=== PATIENT | male | born 1970 | race African-American/Black ===

== ENCOUNTER 2018-10-01 15:01 | Emergency (ER) | payer SELFPAY ==
[~2018-10-01] VITALS: Ht 185.4 cm; Wt 97.5 kg
[2018-10-01] MEDS ORDERED: ASPIRIN 325 MG TABLET PO ONE (15:15)
--- NOTE | 2018-10-01 15:23 | PHYS DOC ---
Adult General Chief Complaint Chief Complaint: CHEST PAIN HPI HPI Patient is a 48 year old male who presents with Maira Jacob when he began having right-sided chest pain and dizziness that lasted less than a minute. Patient states it again happened soon after and again lasted about 30 seconds this time. Patient denies nausea, vomiting, diaphoresis, shortness of air. Patient states he took an 81 mg aspirin. Patient has no pain or symptoms at this time. She takes no medications daily and does have a history of goiter. Review of Systems Review of Systems Constitutional: Denies fever or chills [] Eyes: Denies change in visual acuity, redness, or eye pain [] HENT: Denies nasal congestion or sore throat [] Respiratory: Denies cough or shortness of breath [] Cardiovascular: Right-sided chest pain GI: Denies abdominal pain, nausea, vomiting, bloody stools or diarrhea [] : Denies dysuria or hematuria [] Musculoskeletal: Denies back pain or joint pain [] Integument: Denies rash or skin lesions [] Neurologic: Dizziness. Denies headache, focal weakness or sensory changes [] Endocrine: Denies polyuria or polydipsia [] All other systems were reviewed and found to be within normal limits, except as documented in this note. Current Medications Current Medications Current Medications Medications (Trade) Dose Ordered Sig/[facility] Start Time Stop Time Status Last Admin Dose Admin Aspirin (Alessia Aspirin) 325 mg 1X ONCE 10/01/18 15:15 10/01/18 15:19 DC 10/01/18 15:29 325 MG Allergies Allergies Allergies Coded Allergies Type Severity Reaction Last Updated Verified No Known Drug Allergies 10/01/18 No Physical Exam Physical Exam Constitutional: Well developed, well nourished, no acute distress, non-toxic appearance. [] HENT: Normocephalic, atraumatic, bilateral external ears normal, oropharynx moist, no oral exudates, nose normal. [] Eyes: PERRLA, EOMI, conjunctiva normal, no discharge. [] Neck: Baseball size goiter. Normal range of motion, no tenderness, supple, no stridor. [] Cardiovascular:Heart rate regular rhythm, no murmur [] Lungs & Thorax: Bilateral breath sounds clear to auscultation [] Abdomen: Bowel sounds normal, soft, no tenderness, no masses, no pulsatile masses. [] Skin: Warm, dry, no erythema, no rash. [] Back: No tenderness, no CVA tenderness. [] Extremities: No tenderness, no cyanosis, no clubbing, ROM intact, no edema. [] Neurologic: Alert and oriented X 3, normal motor function, normal sensory function, no focal deficits noted. [] Psychologic: Affect normal, judgement normal, mood normal. [] Current Patient Data Vital Signs Vital Signs Date Time Temp Pulse Resp B/P (MAP) Pulse Ox O2 Delivery O2 Flow Rate FiO2 10/01/18 15:11 97.9 98 18 166/105 (125) 97 Room Air 97.9 Lab Values Laboratory Tests Test 10/01/18 15:30 10/01/18 15:40 White Blood Count 5.2 x10^3/uL (4.0-11.0) Red Blood Count 4.62 x10^6/uL (4.30-5.70) Hemoglobin 14.5 g/dL (13.0-17.5) Hematocrit 42.5 % (39.0-53.0) Mean Corpuscular Volume 92 fL (79-100) Mean Corpuscular Hemoglobin 31 pg (25-35) Mean Corpuscular Hemoglobin Concent 34 g/dL (31-37) Red Cell Distribution Width 13.4 % (11.5-14.5) Platelet Count 220 x10^3/uL (140-400) Neutrophils (%) (Auto) 58 % (31-73) Lymphocytes (%) (Auto) 30 % (24-48) Monocytes (%) (Auto) 10 % (0-9) H Eosinophils (%) (Auto) 2 % (0-3) Basophils (%) (Auto) 1 % (0-3) Neutrophils # (Auto) 3.1 x10^3uL (1.8-7.7) Lymphocytes # (Auto) 1.5 x10^3/uL (1.0-4.8) Monocytes # (Auto) 0.5 x10^3/uL (0.0-1.1) Eosinophils # (Auto) 0.1 x10^3/uL (0.0-0.7) Basophils # (Auto) 0.0 x10^3/uL (0.0-0.2) Prothrombin Time 13.0 SEC (11.7-14.0) Prothrombin Time INR 1.0 (0.8-1.1) Sodium Level 138 mmol/L (136-145) Potassium Level 4.1 mmol/L (3.5-5.1) Chloride Level 102 mmol/L (98-107) Carbon Dioxide Level 29 mmol/L (21-32) Anion Gap 7 (6-14) Blood Urea Nitrogen 13 mg/dL (8-26) Creatinine 1.1 mg/dL (0.7-1.3) Estimated GFR (Cockcroft-Gault) 70.9 BUN/Creatinine Ratio 12 (6-20) Glucose Level 90 mg/dL (70-99) Calcium Level 10.1 mg/dL (8.5-10.1) Total Bilirubin 0.5 mg/dL (0.2-1.0) Aspartate Amino Transferase (AST) 18 U/L (15-37) Alanine Aminotransferase (ALT) 24 U/L (16-63) Alkaline Phosphatase 54 U/L (46-116) Troponin I Quantitative < 0.017 ng/mL (0.000-0.055) Total Protein 8.2 g/dL (6.4-8.2) Albumin 4.1 g/dL (3.4-5.0) Albumin/Globulin Ratio 1.0 (1.0-1.7) Urine Opiates Screen Neg (NEG) Urine Methadone Screen Neg (NEG) Urine Barbiturates Neg (NEG) Urine Phencyclidine Screen Neg (NEG) Urine Amphetamine/Methamphetamine Neg (NEG) Urine Benzodiazepines Screen Neg (NEG) Urine Cocaine Screen Neg (NEG) Urine Cannabinoids Screen Neg (NEG) Urine Ethyl Alcohol Neg (NEG) Laboratory Tests 10/01/18 15:30 Laboratory Tests 10/01/18 15:30 EKG EKG Sinus Rhythm and no STEMI[] Interpretation Time: [address] West Radiology/Procedures Radiology/Procedures [] Impressions: [facility] [address] [place] [address] IMAGING REPORT Signed PATIENT: TIFFANIE GRANT ACCOUNT: [id number] : 1970 LOCATION: ER AGE: 48 SEX: M EXAM STATUS: PRE ER ORD. PHYSICIAN: TIMOTHY LE APRN REASON: chest pain PROCEDURE: CHEST PA & LATERAL Exam performed: 2 views of the chest. Indication: Chest pain Date of Service: 10/01/2018 3:13 PM . Comparison : None available Findings: PA and lateral radiographs of the chest reveal a normal cardiomediastinal contour. The lung apices are not well evaluated due to overlying chin, the remainder lungs are clear. No pleural fluid is seen. The visualized osseous structures are unremarkable. Impression: No acute cardiopulmonary process seen. Electronically signed by: Glory Estevez MD (10/01/2018 3:43 PM) [facility] DICTATED and SIGNED BY: GLORY ESTEVEZ MD DATE: 10/01/18 1543 Course & Med Decision Making Course & Med Decision Making Patient is a 48 year old male who presents with Maira Jacob when he began having right-sided chest pain and dizziness that lasted less than a minute. Patient states it again happened soon after and again lasted about 30 seconds this time. Patient denies nausea, vomiting, diaphoresis, shortness of air. Patient states he took an 81 mg aspirin. Patient has no pain or symptoms at this time. Patient takes no medications daily and does have a history of goiter. Patient has a large baseball size goiter of which he states is shrinking. Patient states he currently has no medical doctor. Patient has a 92 heart rate, 99% on room air, 166/105, 19 respirations, 98.9. Alert and oriented. Skin pink warm and dry. PERRLA. Lungs are clear to station all lobes. Chest pain is not reproducible with palpation. Patient denies any pain at this time. No extremity swelling. Patient denies headache or dizziness or weaknesses or numbness or tingling at this time. Ambulatory with a steady gait. Speaks in full clear sentences. Blood work unremarkable. Troponin negative. Chest x-ray shows no acute findings. Heart score is 1. Patient continues to be symptoms free through whole ED visit. Patient is sent home to follow up with primary care provider in the next 48 hours. Dragon Disclaimer Dragon Disclaimer This electronic medical record was generated, in whole or in part, using a voice recognition dictation system. The HEART Score for CP Pts HEART Score for Chest Pain: HEART Score for Chest Pain Response (Comments) Value History Slighlty/Non-Suspicious 0 ECG Normal 0 Age >45 - < 65 1 Risk Factors No Risk Factors 0 Troponin < Normal Limit 0 Total 1 Risk Factors: Risk Factors: DM, Current or recent (<one month) smoker, HTN, HLP, family history of CAD, obesity. Risk Scores: Score 0 - 3: 2.5% MACE over next 6 weeks - Discharge Home Score 4 - 6: 20.3% MACE over next 6 weeks - Admit for Clinical Observation Score 7 - 10: 72.7% MACE over next 6 weeks - Early Invasive Strategies Departure Departure Impression: Primary Impression: Chest pain Disposition: 01 HOME, SELF-CARE Condition: STABLE Patient Instructions: Chest Pain (Nonspecific) Additional Instructions: Return to the ED if he began having worsening chest pain and symptoms. Follow up with a primary care doctor this week. Problem Qualifiers Primary Impression: Chest pain Chest pain type: unspecified Qualified Codes: R07.9 - Chest pain, unspecified TIMOTHY LE APRN Oct 01, 2018 15:23
[2018-10-01 15:43] LABS: HEMATOCRIT 42.5 % (39.0-53.0); HEMOGLOBIN 14.5 g/dL (13.0-17.5); MEAN CORPUSCULAR HEMOGLOBIN 31 pg (25-35); MEAN CORPUSCULAR HGB CONC 34 g/dL (31-37); MEAN CORPUSCULAR VOLUME 92 fL (79-100); PLATELET COUNT 220 x10^3/uL (140-400); RED BLOOD COUNT 4.62 x10^6/uL (4.30-5.70); RED CELL DISTRIBUTION WIDTH 13.4 % (11.5-14.5); WHITE BLOOD COUNT 5.2 x10^3/uL (4.0-11.0)
[2018-10-01 15:44] LABS: BASO % 1 % (0-3); EOS # 0.1 x10^3/uL (0.0-0.7); EOS % 2 % (0-3); LYMPH # 1.5 x10^3/uL (1.0-4.8); LYMPH % 30 % (24-48); MONO # 0.5 x10^3/uL (0.0-1.1); MONO % 10 % (0-9); NEUT # 3.1 x10^3uL (1.8-7.7); NEUT % 58 % (31-73)
--- NOTE | 2018-10-01 15:45 | RAD ---
Exam performed: 2 views of the chest. Indication: Chest pain Date of Service: 10/01/2018 3:13 PM . Comparison : None available Findings: PA and lateral radiographs of the chest reveal a normal cardiomediastinal contour. The lung apices are not well evaluated due to overlying chin, the remainder lungs are clear. No pleural fluid is seen. The visualized osseous structures are unremarkable. Impression: No acute cardiopulmonary process seen. Electronically signed by: Glory Estevez MD (10/01/2018 3:43 PM) [facility]
--- NOTE | 2018-10-01 15:51 | EKG ---
[facility] [address] [place] [address] Test Date: 2018-10-01 Test Time: 15:08:30 Pat Name: TIFFANIE GRANT Department: Room: Gender: Aircraft Systems Repairer: : 1970 Requested By: TIMOTHY LE Order Number: [id number] Reading MD: Measurements Intervals Raymond Rate: 78 P: 26 MI: 176 QRS: 3 QRSD: 98 T: 23 QT: 358 QTc: 411 Interpretive Statements SINUS RHYTHM NORMAL ECG RI6.01 Unconfirmed report No previous ECG available for comparison
[2018-10-01 15:56] LABS: BARBITURATES NEG (NEG); BENZODIAZEPINES NEG (NEG); CANNABINOIDS NEG (NEG); COCAINE NEG (NEG); METHADONE NEG (NEG); OPIATES NEG (NEG); PHENCYCLIDINE NEG (NEG)
[2018-10-01 15:57] LABS: AMPHETAMINE/METHAMPHETAMINE NEG (NEG)
[2018-10-01 15:59] LABS: CALCIUM 10.1 mg/dL (8.5-10.1); CREATININE 1.1 mg/dL (0.7-1.3); GFR 70.9; POTASSIUM 4.1 mmol/L (3.5-5.1)
[2018-10-01 16:00] VITALS: BP 165/97
[2018-10-01 16:05] LABS: ALBUMIN 4.1 g/dL (3.4-5.0); TOTAL BILIRUBIN 0.5 mg/dL (0.2-1.0); TOTAL PROTEIN 8.2 g/dL (6.4-8.2)
== END 2018-10-01 16:32 | disposition home or self-care (01) ==
LOC: ER 15:01
DX: R07.89 Other chest pain (principal); R42 Dizziness and giddiness; E04.9 Nontoxic goiter, unspecified
CPT/HCPCS: 36415; 71046; 80053; 80307; 84484; 85025; 85610; 93005; 99285-25

== ENCOUNTER 2019-08-02 20:03 | Emergency (ER) | payer OTHER ==
[~2019-08-02] VITALS: Ht 182.9 cm; Wt 99.1 kg
[2019-08-02] MEDS ORDERED: CLON0.1T PO (21:00)
[2019-08-02] MEDS ORDERED: AMOXICILLIN/K CLAV 875/125MG TABLET. PO ONE (21:00)
[2019-08-02] MEDS ORDERED: AMOX1TAB61 PO (21:00)
[2019-08-02] MEDS ORDERED: ACET-704 PO (21:00)
[2019-08-02] MEDS ORDERED: CHLO15MO2 PO (21:00)
[2019-08-02] MEDS ORDERED: DEXAMETHASONE 4 MG TABLET PO ONE (21:00)
[2019-08-02] MEDS ORDERED: ACETAMINOPHEN/CODEINE 300/30MG TABLET. PO ONE (21:00)
--- NOTE | 2019-08-02 21:02 | PHYS DOC ---
Past Medical History Past Medical History: Other Additional Past Medical Histor: GOITER Past Surgical History: No Surgical History Smoking Status: Never Smoker Alcohol Use: None Drug Use: None General Adult EDM: Chief Complaint: HYPERTENSION HPI: HPI: 49-year-old male presents with report of right maxillary molar dental pain and swelling 3 days. Reports some radiation up to his right ear. Denies fever or chills. Denies trauma. Patient does report known poor dentition. Reports has not yet been able to follow up with a dentist. Patient was found to have elevated blood pressure upon triage. Patient denies history of high blood pressure. Reports he is not surprised his blood pressure was elevated due to his discomfort. Denies headache, chest pain, or shortness of air. Review of Systems: Review of Systems: Constitutional: Denies fever or chills Eyes: Denies redness or eye pain HENT: Denies nasal congestion or sore throat; reports right maxillary toothache, gum swelling, and right ear pain Respiratory: Denies cough or shortness of breath Cardiovascular: Denies chest pain or palpitations GI: Denies abdominal pain, nausea, or vomiting Integument: Denies rash or skin lesions Neurologic: Denies headache, focal weakness or sensory changes Complete systems were reviewed and found to be within normal limits, except as documented in this note. Allergies: Allergies: Allergies Coded Allergies Type Severity Reaction Last Updated Verified No Known Drug Allergies 10/01/18 No Physical Exam: PE: Constitutional: Well developed, well nourished, no acute distress, non-toxic appearance HENT: Normocephalic, atraumatic, oropharynx moist, or dentition throughout with prior dental extractions, right first maxillary molar with large dental carry, gingivitis appreciated, no fluctuant mass consistent for drainable abscess Eyes: Conjunctiva normal, no discharge Neck: Normal range of motion, no tenderness, large anterior goiter (chronic) Cardiovascular: Heart rate normal, regular rhythm Lungs & Thorax: Bilateral breath sounds clear to auscultation, no wheezing Skin: Warm, dry, no erythema, no rash Extremities: No tenderness, ROM intact, no edema Neurologic: Alert and oriented X 3, no focal deficits noted Psychologic: Affect normal, judgment normal Current Patient Data: Vital Signs: Vital Signs Date Time Temp Pulse Resp B/P (MAP) Pulse Ox O2 Delivery O2 Flow Rate FiO2 08/02/19 20:12 98.2 88 20 188/113 (138) 98 Room Air 98.2 EKG: EKG: [] Radiology/Procedures: Radiology/Procedures: [] Course & Med Decision Making: Course & Med Decision Making Patient presents with right maxillary molar pain with known poor dentition. Large dental carry, gingivitis, and tenderness noted. No drainable abscess appreciated. Patient was found to have significantly elevated blood pressure. Denies any headache or chest pain. Pain addressed. Empiric antibiotic initiated. Blood pressure did improve. Patient advised would need to follow closely with PCP for further evaluation of his lip pressure. A rescue clonidine prescription was provided with instructions to take only if blood pressure is significantly elevated. Patient stable for discharge with outpatient follow-up with PCP/dentist. Discussed findings and plan with patient, who acknowledges understanding and agreement. Maranda Disclaimer: Maranda Disclaimer: This electronic medical record was generated, in whole or in part, using a voice recognition dictation system. Departure Departure Impression: Primary Impression: Dentalgia Additional Impressions: Dental caries Gingivitis Hypertension Qualified Codes: I10 - Essential (primary) hypertension Disposition: HOME, SELF-CARE Condition: STABLE Referrals: NO PCP (PCP) Patient Instructions: Dental Caries, Gingivitis, [id number], Hypertension, [id number], Toothache-Brief Additional Instructions: The medication you have been prescribed will help with infection but will not cure the problem. Please follow closely with a dentist. You also need to follow with a family physician regarding rechecking your blood pressure. You may need to be on blood pressure medication. The medication you have been given is only a temporary fix. Scripts Clonidine Hcl (CLONIDINE HCL) 0.1 Mg Tablet 0.1 MG PO BID PRN for ELEVATED BP, SEE COMMENTS, #14 TAB Take for systolic blood pressure (upper number) greater than 185 and/or diastolic blood pressure (lower number) greater than 105. Prov: JANNET WHEATLEY DO 08/02/19 Chlorhexidine Gluconate (PERIDEX) 15 Ml Mouthwash 15 ML PO BID, #500 ML 0 Refills Swish and spit twice daily after brushing teeth Prov: JANNET WHEATLEY DO 08/02/19 Acetaminophen With Codeine (TYLENOL WITH CODEINE #3 TABLET) 1 Each Tablet 1 TAB PO PRN Q6HRS PRN for pain MDD 4 Tablet(s), #10 TAB 0 Refills Prov: JANNET WHEATLEY DO 08/02/19 Amoxicillin/Potassium Clav (AUGMENTIN 875-125 TABLET) 1 Each Tablet 1 TAB PO BID, #14 TAB Prov: JANNET WHEATLEY DO 08/02/19 JANNET WHEATLEY DO August 02, 2019 21:02
[2019-08-02 21:14] VITALS: BP 168/97
== END 2019-08-02 21:18 | disposition home or self-care (01) ==
LOC: ER 20:03
DX: K02.9 Dental caries, unspecified (principal); K05.10 Chronic gingivitis, plaque induced; K08.89 Other specified disorders of teeth and supporting structures; I10 Essential (primary) hypertension
CPT/HCPCS: 99284; J8540

== ENCOUNTER 2020-04-07 15:52 | Emergency (ER) | payer OTHER ==
[~2020-04-07] VITALS: Ht 182.9 cm; Wt 92.7 kg
[~2020-04-07 15:52] MED LIST: ACET-704 PO; AMOX1TAB61 PO; CHLO15MO2 PO; CLON0.1T PO
[2020-04-07 16:20] VITALS: BP 138/88
--- NOTE | 2020-04-07 16:49 | PHYS DOC ---
Past Medical History Past Medical History: Hypertension, Other Additional Past Medical Histor: GOITER Past Surgical History: Appendectomy Smoking Status: Never Smoker Alcohol Use: None Drug Use: None General Adult EDM: Chief Complaint: HYPERTENSION HPI: HPI: 49-year-old male presenting the emergency department with elevated blood pressure readings at home. He has felt generally fatigued. He had an appendectomy about a week ago. He denies chest pain or shortness of breath. His blood pressure readings have got up into the 150s systolic. He takes amlodipine 10 mg daily. He denies any strokelike symptoms or chest pain. He is feeling better from his appendectomy. His surgical scars are healing. Review of systems negative for chest pain shortness of breath vomiting fevers chills headache facial drooping or numbness or weakness of his arms or legs. All other review of systems negative. ED course: 49-year-old male presenting with hypertension. On arrival the patient's blood pressure was 138/88. The patient is a well-appearing. His abdo men is soft and nontender with his laparotomy surgical sites healing well. We will discharge the patient to follow-up with his PCP for treatment of his high blood pressure. I will have him record his blood pressures at home in the interim. Heart Score: Risk Factors: Risk Factors: DM, Current or recent (<one month) smoker, HTN, HLP, family histo ry of CAD, obesity. Risk Scores: Score 0 - 3: 2.5% MACE over next 6 weeks - Discharge Home Score 4 - 6: 20.3% MACE over next 6 weeks - Admit for Clinical Observation Score 7 - 10: 72.7% MACE over next 6 weeks - Early Invasive Strategies Allergies: Allergies: Allergies Coded Allergies Type Severity Reaction Last Updated Verified No Known Drug Allergies 10/01/18 No Physical Exam: PE: Constitutional: Well developed, well nourished, no acute distress, non-toxic appearance. [] HENT: Normocephalic, atraumatic, bilateral external ears normal, oropharynx moist, no oral exudates, nose normal. [] Eyes: PERRLA, EOMI, conjunctiva normal, no discharge. [] Neck: Normal range of motion, no tenderness, supple, no stridor. [] Cardiovascular:Heart rate regular rhythm, no murmur [] Lungs & Thorax: Bilateral breath sounds clear to auscultation [] Abdomen: Bowel sounds normal, soft, no tenderness, no masses, no pulsatile masses. [] Surgical sites/laparotomy sites are clean dry and intact. Skin: Warm, dry, no erythema, no rash. [] Back: No tenderness, no CVA tenderness. [] Extremities: No tenderness, no cyanosis, no clubbing, ROM intact, no edema. [] Neurologic: Alert and oriented X 3, normal motor function, normal sensory function, no focal deficits noted. [] Psychologic: Affect normal, judgement normal, mood normal. [] Current Patient Data: Vital Signs: Vital Signs Date Time Temp Pulse Resp B/P (MAP) Pulse Ox O2 Delivery O2 Flow Rate FiO2 04/07/20 16:20 98.0 101 16 138/88 (105) 100 98.0 EKG: EKG: [] Radiology/Procedures: Radiology/Procedures: [] Course & Med Decision Making: Course & Med Decision Making Pertinent Labs and Imaging studies reviewed. (See chart for details) [] Dragon Disclaimer: Dragon Disclaimer: This electronic medical record was generated, in whole or in part, using a voice recognition dictation system. Departure Departure Impression: Primary Impression: Hypertension Disposition: 01 DC HOME SELF CARE/HOMELESS Condition: STABLE Referrals: HUMA BARRERA PATIENT ACCESS COORDINATOR (PCP) Patient Instructions: Hypertension Additional Instructions: Follow-up with your primary physician in 1 to 2 days. Return to the emergency department if you have any new or concerning findings. MATHEUS LUCIA MD Apr 07, 2020 16:49
== END 2020-04-07 17:15 | disposition home or self-care (01) ==
LOC: ER 15:52
DX: I10 Essential (primary) hypertension (principal); R53.83 Other fatigue; Z90.89 Acquired absence of other organs
CPT/HCPCS: 99281